=== PATIENT | male | born 1985 | race Caucasian/White ===

== ENCOUNTER 2023-10-04 15:47 | Emergency (ER) | payer OTHER ==
--- NOTE | 2023-10-04 16:37 | ED ---
General Adult HPI <Rickey Yang - Last Filed: 10/04/23 16:37> - General Source: RN notes reviewed, old records reviewed <Ortega Armenta - Last Filed: 10/04/23 22:11> - General Stated complaint: GI Bleed Time Seen by Provider: 10/04/23 16:32 - History of Present Illness Initial comments: Quick note 38-year-old male presenting to the ED with a chief complaint of blood in the stool. Patient reports for the past month he has had rectal pain. Has not recently worsened in severity. States only had a bowel movement today noticed some blood in the stool. Denies abdominal pain however notes that he has had issues with heartburn. (Rickey Yang) Patient is a 38-year-old male who was originally evaluated as a quick note. Presents emergency department complaining of bright red blood per rectum. Occurred once today, possibly a second time earlier today. Has a history of IBS. Denies any abdominal pain. Has a history of hemorrhoids. States he saw bright red blood in the toilet today after he had a bowel movement. No subsequent episodes. Is not on blood thinners. Denies any abdominal pain. Denies any nausea or vomiting or hematemesis. Denies any melena or dark black stools. Presents for further evaluation at this time.Had some rectal pain which is chronic for the patient and unchanged. (Ortega Armenta) - Related Data Previous Rx's Medication Instructions Recorded Pantoprazole [Protonix] 40 mg PO DAILY 30 Days #30 tab 10/04/23 Allergies Allergy/AdvReac Type Severity Reaction Status Date / Time cefaclor [From Ceclor] Allergy Itching Verified 10/04/23 16:57 Review of Systems ROS Other: All systems not noted in ROS Statement are negative. <Rickey Yang - Last Filed: 10/04/23 16:37> ROS Other: All systems not noted in ROS Statement are negative. <Ortega Armenta - Last Filed: 10/04/23 22:11> ROS Statement: Those systems with pertinent positive or pertinent negative responses have been documented in the HPI. Review of Systems: CONST: Denies fever EYES: Denies blurry vision ENT: Denies nasal congestion C/V: Denies Chest pain RESP: Denies shortness of breath GI: Denies abdominal pain : Denies dysuria SKIN: Denies rash. MSK: Denies joint pain. NEURO: Denies headache (Ortega Armenta) General Exam <Rickey Yang - Last Filed: 10/04/23 16:37> <Ortega Armenta - Last Filed: 10/04/23 22:11> - General Exam Comments Initial Comments: Visual Physical Exam Vital signs reviewed General: Well-appearing, nontoxic, no acute distress. Head: Normocephalic, atraumatic Eyes: PERRLA, EOMI ENT: Airway patent Chest: Nonlabored breathing Skin: No visual rash, normal skin tone Neuro: Alert and oriented 3 Musculoskeletal: No gross abnormalities (Rickey Yang) General: Appears in no acute distress. HEAD: Normal with no signs of head trauma. EYES: PERRLA, EOMI, conjunctiva normal, no discharge. ENT: Hearing grossly intact, normal oropharynx. RESPIRATORY: Clear breath sounds bilaterally. No wheezes, rales, or rhonchi. C/V: Regular rate and rhythm. S1 and S2 auscultated, no edema, peripheral pulses 2+ and intact throughout ABD: Abd is soft, nontender, nondistended. Rectal exam unremarkable. Brown stool on exam. No gross blood. Good rectal tone. No significant rectal abnormalities. No obvious external hemorrhoids. EXT: Normal range of motion, no obvious deformity SKIN: No rashes or lesions observed on exposed skin. NEURO: Alert and oriented x 4. (Ortega Armenta) Course Vital Signs 10/04/23 10/04/23 10/04/23 16:51 17:54 19:44 Temperature 98.4 F 97.8 F Pulse Rate 105 H 91 99 Respiratory 16 18 16 Rate Blood Pressure 148/100 131/89 136/91 O2 Sat by Pulse 96 97 96 Oximetry Medical Decision Making <Rickey Yang - Last Filed: 10/04/23 16:37> - Lab Data Result diagrams: 10/04/23 17:32 10/04/23 17:32 <Ortega Armenta - Last Filed: 10/04/23 22:11> - Medical Decision Making Quicknote portion performed. Signed Rickey Yang PA-C (Rickey Yang) Was pt. sent in by a medical professional or institution (Dr., PA, TOOLS DEVELOPER, urgent care, hospital, or intermediate...) When possible be specific @ -No Did you speak to anyone other than the patient for history (EMS, parent, family, police, friend...)? What history was obtained from this source @ -No Did you review nursing and triage notes (agree or disagree)? Why? @ -I reviewed and agree with nursing and triage notes Were old charts reviewed (outside hosp., previous admission, EMS record, old EKG, old radiological studies, urgent care reports/EKG's, intermediate records)? Report findings @ -No old charts were reviewed Differential Diagnosis (chest pain, altered mental status, abdominal pain women, abdominal pain men, vaginal bleeding, weakness, fever, dyspnea, syncope, headache, dizziness, GI bleed, back pain, seizure, CVA, palpatations, mental health, musculoskeletal)? @ -Differential GI Bleed: Esophageal varices, aortoenteric fistula, Nataliia-Pereyra, gastritis, peptic ulcer disease, diverticulosis, inflammatory bowel disease, hemorrhoids, fissure, colitis, malignancy, Meckel's diverticulum, this is not meant to be an all- inclusive list. EKG interpreted by me (3pts min.). @ -None done X-rays interpreted by me (1pt min.). @ -None done CT interpreted by me (1pt min.). @ -CT angio GI bleed protocol negative for any obvious evidence of GI bleed. No acute intra-abdominal process. U/S interpreted by me (1pt. min.). @ -None done What testing was considered but not performed or refused? (CT, X-rays, U/S, la bs)? Why? @ -None What meds were considered but not given or refused? Why? @ -None Did you discuss the management of the patient with other professionals (professionals i.e. TYRONE Stubbs, TOOLS DEVELOPER, lab, RT, psych nurse, social worker health services, senior private client advisor, teacher, investment officer, nurse outreach case manager)? Give summary @ -No Was smoking cessation discussed for >3mins.? @ -No Was critical care preformed (if so, how long)? @ -No Were there social determinants of health that impacted care today? How? (Homelessness, low income, unemployed, alcoholism, drug addiction, transportation, low edu. Level, literacy, decrease access to med. care, penitentiary, rehab)? @ -No Was there de-escalation of care discussed even if they declined (Discuss DNR or withdrawal of care, Hospice)? DNR status @ -No What co-morbidities impacted this encounter? (DM, HTN, Smoking, COPD, CAD, Cancer, CVA, ARF, Chemo, Hep., AIDS, mental health diagnosis, sleep apnea, morbid obesity)? @ -None Was patient admitted / discharged? Hospital course, mention meds given and route, prescriptions, significant lab abnormalities, going to OR and other pertinent info. @ -Patient presents with concern for bright red blood per rectum. Occurred once and possibly twice today. No significant history. Currently resting comfortably. Originally seen as a quick note. Patient will receive Protonix at this time as well as basic labs and a CT after discussion. He was in agreement this plan. No gross blood per rectum. Vital signs within acceptable limits. CT imaging negative for any obvious acute intra-abdominal process or acute GI bleed. Labs are unremarkable. Hemoglobin slightly decreased to 12.9. No prior for baseline. Coags within normal limits. Patient's BUN is slightly elevated to 26 without a comparative study. Patient has positive occult blood. Reevaluation, I updated the patient on results. No subsequent bloody bowel movements. We did discuss risks and after discussion is the patient is otherwise healthy, not on blood thinners, and does not have symptomatic anemia with no further episodes of blood per rectum we both agree he is stable for discharge home at this time with close follow-up. He will be given GI follow- up. Recommended Protonix at home which she will be prescribed. He is not on blood thinners so therefore I recommended he avoid NSAIDs. He was in agreement this plan. Strict return precautions at this time. I will provide the patient with a prescription for Protonix. I instructed the patient to follow up with their PCP in the next 1-3 days. I provided contact information for follow up with gastroenterology. I explained that the patient should return to the emergency department if they experience any worsening symptoms. Strict return precautions were discussed with the patient. The patient expressed understanding of these instructions. I answered all questions that the patient had. The patient was discharged home in good condition with their prescriptions and follow up information. Undiagnosed new problem with uncertain prognosis? @ -No Drug Therapy requiring intensive monitoring for toxicity (Heparin, Nitro, Insulin, Cardizem)? @ -No Were any procedures done? @ -No Diagnosis/symptom? @ -GI bleed Acute, or Chronic, or Acute on Chronic? @ -Acute Uncomplicated (without systemic symptoms) or Complicated (systemic symptoms)? @ -Uncomplicated Side effects of treatment? @ -No Exacerbation, Progression, or Severe Exacerbation? @ -No Poses a threat to life or bodily function? How? (Chest pain, USA, MA, pneumonia, PE, COPD, DKA, ARF, appy, cholecystitis, CVA, Diverticulitis, Homicidal, Viveros icidal, threat to staff... and all critical care pts) @ -Possibly, yes if it worsens without close follow-up. (Ortega Armenta) - Lab Data Lab Results 10/04/23 10/04/23 10/04/23 Range/Units 17:32 17:32 17:32 WBC 7.6 (3.8-10.6) k/uL RBC 4.42 (4.30-5.90) m/uL Hgb 12.9 L (13.0-17.5) gm/dL Hct 39.3 (39.0-53.0) % MCV 88.8 (80.0-100.0) fL MCH 29.1 (25.0-35.0) pg MCHC 32.8 (31.0-37.0) g/dL RDW 13.6 (11.5-15.5) % Plt Count 397 (150-450) k/uL MPV 7.0 Neutrophils % 50 % Lymphocytes % 38 % Monocytes % 7 % Eosinophils % 3 % Basophils % 1 % Neutrophils # 3.8 (1.3-7.7) k/uL Lymphocytes # 2.9 (1.0-4.8) k/uL Monocytes # 0.5 (0-1.0) k/uL Eosinophils # 0.2 (0-0.7) k/uL Basophils # 0.1 (0-0.2) k/uL PT (10.0-12.5) sec INR (<1.2) APTT (22.0-30.0) sec Sodium 139 (137-145) mmol/L Potassium 4.7 (3.5-5.1) mmol/L Chloride 107 (98-107) mmol/L Carbon Dioxide 25 (22-30) mmol/L Anion Gap 7 mmol/L BUN 26 H (9-20) mg/dL Creatinine 1.00 (0.66-1.25) mg/dL Est GFR (CKD-EPI)AfAm >90 (>60 ml/min/1.73 sqM) Est GFR (CKD-EPI)NonAf >90 (>60 ml/min/1.73 sqM) Glucose 118 H (74-99) mg/dL Calcium 9.1 (8.4-10.2) mg/dL Total Bilirubin 0.3 (0.2-1.3) mg/dL AST 24 (17-59) U/L ALT 22 (4-49) U/L Alkaline Phosphatase 78 (38-126) U/L Total Protein 6.9 (6.3-8.2) g/dL Albumin 4.3 (3.5-5.0) g/dL Urine Color Colorless Urine Appearance Clear (Clear) Urine pH 6.0 (5.0-8.0) Ur Specific [place] 1.016 (1.001-1.035) Urine Protein Negative (Negative) Urine Glucose (UA) Negative (Negative) Urine Ketones Negative (Negative) Urine Blood Negative (Negative) Urine Nitrite Negative (Negative) Urine Bilirubin Negative (Negative) Urine Urobilinogen <2.0 (<2.0) mg/dL Ur Leukocyte Esterase Negative (Negative) Stool Occult Blood (Negative) 10/04/23 10/04/23 Range/Units 17:54 17:54 WBC (3.8-10.6) k/uL RBC (4.30-5.90) m/uL Hgb (13.0-17.5) gm/dL Hct (39.0-53.0) % MCV (80.0-100.0) fL MCH (25.0-35.0) pg MCHC (31.0-37.0) g/dL RDW (11.5-15.5) % Plt Count (150-450) k/uL MPV Neutrophils % % Lymphocytes % % Monocytes % % Eosinophils % % Basophils % % Neutrophils # (1.3-7.7) k/uL Lymphocytes # (1.0-4.8) k/uL Monocytes # (0-1.0) k/uL Eosinophils # (0-0.7) k/uL Basophils # (0-0.2) k/uL PT 10.2 (10.0-12.5) sec INR 0.9 (<1.2) APTT 25.5 (22.0-30.0) sec Sodium (137-145) mmol/L Potassium (3.5-5.1) mmol/L Chloride (98-107) mmol/L Carbon Dioxide (22-30) mmol/L Anion Gap mmol/L BUN (9-20) mg/dL Creatinine (0.66-1.25) mg/dL Est GFR (CKD-EPI)AfAm (>60 ml/min/1.73 sqM) Est GFR (CKD-EPI)NonAf (>60 ml/min/1.73 sqM) Glucose (74-99) mg/dL Calcium (8.4-10.2) mg/dL Total Bilirubin (0.2-1.3) mg/dL AST (17-59) U/L ALT (4-49) U/L Alkaline Phosphatase (38-126) U/L Total Protein (6.3-8.2) g/dL Albumin (3.5-5.0) g/dL Urine Color Urine Appearance (Clear) Urine pH (5.0-8.0) Ur Specific [place] (1.001-1.035) Urine Protein (Negative) Urine Glucose (UA) (Negative) Urine Ketones (Negative) Urine Blood (Negative) Urine Nitrite (Negative) Urine Bilirubin (Negative) Urine Urobilinogen (<2.0) mg/dL Ur Leukocyte Esterase (Negative) Stool Occult Blood Positive (Negative) Disposition <Rickey Yang - Last Filed: 10/04/23 16:37> Is patient prescribed a controlled substance at d/c from ED?: No Time of Disposition: 19:30 <Ortega Armenta - Last Filed: 10/04/23 22:11> Clinical Impression: GI bleed Disposition: HOME SELF-CARE Condition: Good Instructions (If sedation given, give patient instructions): Gastrointestinal Bleeding (ED) Prescriptions: Pantoprazole [Protonix] 40 mg PO DAILY 30 Days #30 tab Referrals: None,Stated [Primary Care Provider] - 1-2 days Sydnee Camejo MD [STAFF PHYSICIAN] - 1-2 days Forms: [facility] PCPs
[2023-10-04 17:57] LABS: ALT 22 U/L (4-49); AST 24 U/L (17-59); African American GFR (CKD) >90 (>60 ml/min/1.73 sqM); Albumin 4.3 g/dL (3.5-5.0); Alkaline Phosphatase 78 U/L (38-126); Anion Gap 7 mmol/L; Blood Urea Nitrogen 26 mg/dL (9-20); Calcium 9.1 mg/dL (8.4-10.2); Carbon Dioxide 25 mmol/L (22-30); Chloride 107 mmol/L (98-107); Glucose 118 mg/dL (74-99); Non-African American GFR(CKD) >90 (>60 ml/min/1.73 sqM); Potassium 4.7 mmol/L (3.5-5.1); Sodium 139 mmol/L (137-145); Total Bilirubin 0.3 mg/dL (0.2-1.3); Total Protein 6.9 g/dL (6.3-8.2)
[2023-10-04] MEDS: PANTOPRAZOLE 40 MG/10 ML VIAL IVP STA (17:57)
[2023-10-04 18:07] LABS: Basophils # (A) 0.1 k/uL (0-0.2); Basophils % (A) 1 %; Eosinophils # (A) 0.2 k/uL (0-0.7); Eosinophils % (A) 3 %; HCT 39.3 % (39.0-53.0); HGB 12.9 gm/dL (13.0-17.5); Lymphocytes # (A) 2.9 k/uL (1.0-4.8); Lymphocytes % (A) 38 %; MCH 29.1 pg (25.0-35.0); MCHC 32.8 g/dL (31.0-37.0); MCV 88.8 fL (80.0-100.0); Monocytes # (A) 0.5 k/uL (0-1.0); Monocytes % (A) 7 %; Neutrophils # (A) 3.8 k/uL (1.3-7.7); Neutrophils % (A) 50 %; Platelet Count 397 k/uL (150-450); RBC 4.42 m/uL (4.30-5.90); RDW 13.6 % (11.5-15.5); WBC 7.6 k/uL (3.8-10.6)
[2023-10-04 18:18] LABS: INR 0.9 (<1.2); Partial Thromboplastin Time 25.5 sec (22.0-30.0); Prothrombin Time 10.2 sec (10.0-12.5)
[2023-10-04 18:23] LABS: Appearance,Urine Clear (Clear); Bilirubin,Urine Negative (Negative); Blood,Urine Negative (Negative); Color,Urine Colorless; Glucose,Urine (UA) Negative (Negative); Ketones,Urine Negative (Negative); Leukocyte Esterase,Urine Negative (Negative); Nitrite,Urine Negative (Negative); Protein,Urine Negative (Negative); Specific Gravity,Urine 1.016 (1.001-1.035); Urobilinogen,Urine <2.0 mg/dL (<2.0)
--- NOTE | 2023-10-04 19:05 | CT ---
EXAMINATION TYPE: CT angio abdomen pelvis CT DLP: 3761 mGycm, Automated exposure control for dose reduction was used. DATE OF EXAM: 10/04/2023 6:31 PM COMPARISON: None CLINICAL INDICATION:Male, 38 years old with history of gi bleed protocol; [facility], GI bleed TECHNIQUE: Multiple thin slice sub-millimeter images were obtained after administration of contrast. 3-D reconstructed images and maximum intensity projection images were obtained. CT angio abdomen pel vis CT Contrast: Contrast used:100 ml mL of Isovue 370 without and with IV Contrast, Oral contrast used: without Oral Contrast None FINDINGS: LOWER CHEST: No evidence of focal consolidation, pneumothorax or pleural effusion. LIVER: Unremarkable GALLBLADDER AND BILE DUCTS: Unremarkable. PANCREAS: Unremarkable. SPLEEN: Unremarkable. ADRENAL GLANDS: Unremarkable. KIDNEYS AND URETERS: No evidence of hydronephrosis or renal calculus. The ureters are unremarkable. PELVIS BLADDER: Unremarkable REPRODUCTIVE: Unremarkable. ABDOMEN & PELVIS STOMACH AND BOWEL: Evaluation of the gastrointestinal tract demonstrates no evidence of high density hemorrhage arterial phase or pooling of blood on delayed phases. The rectum and anus appear grossly u nremarkable. No evidence of bowel obstruction. Small hiatal hernia. PERITONEUM: No evidence of pneumoperitoneum or free fluid. VASCULATURE: No evidence of aortic aneurysm. MUSCULOSKELETAL: No acute osseous abnormalities LYMPH NODES: No gross evidence for lymphadenopathy. SOFT TISSUE/ABDOMINAL WALL: Fat-containing umbilical hernia. Fatty changes to the inguinal canals. IMPRESSION No evidence for gastrointestinal hemorrhage. No evidence for acute abdominal process.
[2023-10-04 20:01] VITALS: BP 136/91; PULSE 99; RESP 16; TEMP 97.8
== END 2023-10-04 19:45 | disposition home or self-care (01) ==
LOC: EC 15:47
DX: K92.2 Gastrointestinal hemorrhage, unspecified (principal); Z88.1 Allergy status to other antibiotic agents
CPT/HCPCS: 36415; 80053; 85025; 85610; 85730; 82272; 81003; 74174; 99285; 96374; C9113; Q9967